=== PATIENT | female | born 1975 | race Two or more races ===

== ENCOUNTER 2017-09-13 18:22 | Emergency (ER) | payer MEDICAID ==
[~2017-09-13] VITALS: Ht 160 cm; Wt 95.3 kg
[2017-09-13 20:24] LABS: Basophils # (auto) 0.1 uL; Basophils % (auto) 1.1 % (0.0-2.0); Eosinophils # (auto) 0.2 uL; Eosinophils % (auto) 2.8 % (0.0-7.0); Hematocrit 38.4 % (36.0-46.0); Hemoglobin 12.8 g/dL (12.2-16.2); Lymphocytes # (auto) 2.8 uL; Mean Corpuscular Hemoglobin 27.4 pg (28.0-32.0); Mean Corpuscular Hgb Conc. 33.2 g/dL (32.0-36.0); Mean Corpuscular Volume 82.5 fL (80.0-100.0); Monocytes # (auto) 0.5 uL; Monocytes % (auto) 7.8 % (0.0-12.0); Neutrophils # (auto) 3.2 uL; Neutrophils % (auto) 47.3 % (37.0-80.0); Nucleated Red Blood Cells % 0.3 %; Platelet Count (auto) 285 10^3/uL (140-450); Red Blood Cells 4.66 10^6/uL (4.0-5.20); Red Cell Distribution Width 14.8 % (11.8-14.3); White Blood Cell 6.9 10^3/uL (4.4-10.8)
[2017-09-13 20:34] LABS: Albumin 3.6 g/dL (3.4-5.0); BUN/Creatinine Ratio 11.1; Calcium 8.7 mg/dL (8.5-10.1)
[2017-09-13 20:37] LABS: Bilirubin, Total 0.3 mg/dL (0.2-1.0); Total Protein 7.4 g/dL (6.4-8.2)
[2017-09-13 20:41] LABS: INR 0.92 (0.9-1.15); Partial Thromboplastin Time 25.4 sec (22.64-33.71)
[2017-09-13] MEDS ORDERED: LORazepam 0.5 MG TAB PO ONE (22:00)
[2017-09-13] MEDS ORDERED: LORazepam 0.5 MG TAB ONE (23:01)
[2017-09-13 23:04] VITALS: BP 153/93
[2017-09-13 23:23] LABS: Urine Bacteria FEW /hpf (None Seen); Urine Blood Negative /uL (Negative); Urine Specific Gravity 1.004 (1.001-1.035); Urine WBC 1 /hpf (0 - 5)
== END 2017-09-14 00:54 | disposition home or self-care (01) ==
LOC: ER 18:22
DX: R60.9 Edema, unspecified (principal); K76.0 Fatty (change of) liver, not elsewhere classified; Z90.710 Acquired absence of both cervix and uterus; Z98.51 Tubal ligation status
CPT/HCPCS: 36415; 71046; 76705; 80053; 81001; 81025; 83880; 84443; 85025; 85379; 85610; 85730

== ENCOUNTER 2018-03-21 19:48 | Emergency (ER) | payer MEDICAID ==
[~2018-03-21] VITALS: Ht 160 cm; Wt 95.3 kg
[2018-03-21 21:37] LABS: Eosinophils # (auto) 0 uL; Hemoglobin 12.6 g/dL (12.2-16.2); Mean Corpuscular Hgb Conc. 32.3 g/dL (32.0-36.0); Monocytes % (auto) 7.4 % (0.0-12.0); Neutrophils # (auto) 8.4 uL; Neutrophils % (auto) 64.6 % (37.0-80.0); Nucleated Red Blood Cells % 0.1 %
[2018-03-21 21:39] LABS: Basophils # (auto) 0 uL; Basophils % (auto) 0.3 % (0.0-2.0); Eosinophils % (auto) 0.2 % (0.0-7.0); Lymphocytes # (auto) 3.6 uL; Lymphocytes % (auto) 27.5 % (10.0-50.0); Mean Corpuscular Hemoglobin 26.4 pg (28.0-32.0); Mean Corpuscular Volume 81.8 fL (80.0-100.0); Platelet Count (auto) 345 10^3/uL (140-450); Red Blood Cells 4.76 10^6/uL (4.0-5.20); Red Cell Distribution Width 13.7 % (11.8-14.3)
[2018-03-21 21:51] LABS: Chloride 106 mmol/L (98-107); Potassium 3.7 mmol/L (3.5-5.1); Sodium 138 mmol/L (136-145)
[2018-03-21 21:56] LABS: Alanine Aminotransferase 27 U/L (13-56); Albumin 3.4 g/dL (3.4-5.0); Anion Gap 9 (5-15); Aspartate Aminotransferase 16 U/L (15-37); BUN/Creatinine Ratio 18.4; Blood Urea Nitrogen 16 mg/dL (7-18); Calcium 8.3 mg/dL (8.5-10.1); Carbon Dioxide 23 mmol/L (21-32); GFR African American 91 mL/min; GFR Non-African American 76 mL/min; Glucose 107 mg/dL (74-106); Magnesium 2.3 mg/dL (1.6-2.6)
[2018-03-21 22:01] LABS: Alkaline Phosphatase 85 U/L (45-117); Bilirubin, Total 0.3 mg/dL (0.2-1.0); Total Protein 7.8 g/dL (6.4-8.2)
[2018-03-22] MEDS ORDERED: LORazepam 0.5 MG TAB PO ONE (03:30)
[2018-03-22] MEDS ORDERED: ASPirin 325 MG TAB PO ONE (03:30)
[2018-03-22 04:00] VITALS: BP 118/73
== END 2018-03-22 05:44 | disposition home or self-care (01) ==
LOC: ER 19:48
DX: R07.9 Chest pain, unspecified (principal); Z90.710 Acquired absence of both cervix and uterus; Z98.51 Tubal ligation status
CPT/HCPCS: 36415; 71045; 80053; 81025; 83735; 83880; 84443; 84484; 85025; 93005

== ENCOUNTER 2020-08-17 08:27 | Inpatient (IN) | payer MEDICAID ==
[~2020-08-17] VITALS: Ht 160 cm; Wt 94.6 kg
[2020-08-17 09:21] LABS: Urine Bacteria FEW /hpf (None Seen); Urine Blood Negative /uL (Negative); Urine Mucus FEW (None Seen); Urine Specific Gravity 1.025 (1.001-1.035); Urine WBC 17 /hpf (0 - 5)
[2020-08-17] MEDS ORDERED: cefTRIAXone 1GM/50ML D5W 50 ML IV ONE (10:00)
[2020-08-17 10:22] LABS: Basophils # (auto) 0 10 ^3/uL (0-0.2); Basophils % (auto) 0.6 % (0.0-2.0); Eosinophils # (auto) 0 10 ^3/uL (0-0.8); Eosinophils % (auto) 0.6 % (0.0-7.0); Hematocrit 38.1 % (36.0-46.0); Hemoglobin 12.7 g/dL (12.2-16.2); Lymphocytes # (auto) 1.9 10 ^3/uL (0.4-5.4); Lymphocytes % (auto) 31.9 % (10.0-50.0); Mean Corpuscular Hemoglobin 27.4 pg (28.0-32.0); Mean Corpuscular Hgb Conc. 33.5 g/dL (32.0-36.0); Mean Corpuscular Volume 81.8 fL (80.0-100.0); Monocytes # (auto) 0.3 10 ^3/uL (0-1.3); Monocytes % (auto) 5.5 % (0.0-12.0); Neutrophils # (auto) 3.6 10 ^3/uL (1.6-8.6); Neutrophils % (auto) 61.4 % (37.0-80.0); Nucleated Red Blood Cells % 0.1 %; Platelet Count (auto) 329 10^3/uL (140-450); Red Blood Cells 4.66 10^6/uL (4.0-5.20); Red Cell Distribution Width 14.8 % (11.8-14.3); White Blood Cell 5.8 10^3/uL (4.4-10.8)
[2020-08-17 12:59] LABS: Potassium 4.2 mmol/L (3.5-5.1)
[2020-08-17 13:05] LABS: Albumin 3.9 g/dL (3.4-5.0); BUN/Creatinine Ratio 17.3; Calcium 9.2 mg/dL (8.5-10.1)
[2020-08-17 13:08] LABS: Bilirubin, Total 1.4 mg/dL (0.2-1.0); Total Protein 8.2 g/dL (6.4-8.2)
[2020-08-17] MEDS ORDERED: NITROGLYCERIN 0.4 MG SL TAB SL PRN (23:45)
[2020-08-17] MEDS ORDERED: MORPHINE SULF INJ 2 MG/ML SYRINGE 1ML IV PRN (23:45)
[2020-08-17] MEDS ORDERED: HYDROcodone-ACET 5/325MG TAB PO PRN (23:45)
[2020-08-18] MEDS: D5W/SOD CHL 0.45% 1,000 ML IV SCH ×2 (00:03→13:05)
[2020-08-18] MEDS: ACETAMINOPHEN 325 MG TAB PO PRN ×2 (00:04→09:46)
[2020-08-18] MEDS: PANTOPRAZOLE 40 MG/10 ML VIAL INJ IV SCH (07:55)
[2020-08-18] MEDS: cefTRIAXone 1GM/50ML D5W 50 ML IV SCH (07:55)
[2020-08-18] MEDS: ENOXAPARIN SOD 40 MG/0.4 ML SYRINGE SC SCH (07:55)
[2020-08-18 07:57] LABS: Basophils # (auto) 0 10 ^3/uL (0-0.2); Basophils % (auto) 0.6 % (0.0-2.0); Eosinophils # (auto) 0.2 10 ^3/uL (0-0.8); Eosinophils % (auto) 2.7 % (0.0-7.0); Hematocrit 35.2 % (36.0-46.0); Hemoglobin 11.8 g/dL (12.2-16.2); Lymphocytes # (auto) 2.8 10 ^3/uL (0.4-5.4); Lymphocytes % (auto) 39.3 % (10.0-50.0); Mean Corpuscular Hemoglobin 27.3 pg (28.0-32.0); Mean Corpuscular Hgb Conc. 33.6 g/dL (32.0-36.0); Mean Corpuscular Volume 81.1 fL (80.0-100.0); Monocytes # (auto) 0.5 10 ^3/uL (0-1.3); Monocytes % (auto) 6.7 % (0.0-12.0); Neutrophils # (auto) 3.6 10 ^3/uL (1.6-8.6); Neutrophils % (auto) 50.7 % (37.0-80.0); Nucleated Red Blood Cells % 0.1 %; Platelet Count (auto) 283 10^3/uL (140-450); Red Blood Cells 4.34 10^6/uL (4.0-5.20); Red Cell Distribution Width 14.6 % (11.8-14.3); White Blood Cell 7.1 10^3/uL (4.4-10.8)
[2020-08-18 08:17] LABS: Potassium 3.8 mmol/L (3.5-5.1)
[2020-08-18 08:23] LABS: Albumin 3.4 g/dL (3.4-5.0); BUN/Creatinine Ratio 24.1
[2020-08-18 08:26] LABS: Bilirubin, Total 0.8 mg/dL (0.2-1.0); Total Protein 7.2 g/dL (6.4-8.2)
[2020-08-18] MEDS: metroNIDAZOLE 500MG/100ML 100 ML IV SCH ×2 (14:00→21:31)
[2020-08-18 17:47] LABS: INR 1.03 (0.9-1.15)
[2020-08-18 21:13] VITALS: BP 115/69
[2020-08-19] MEDS: D5W/SOD CHL 0.45% 1,000 ML IV SCH ×2 (02:25→15:45)
[2020-08-19] MEDS: metroNIDAZOLE 500MG/100ML 100 ML IV SCH ×3 (06:21→22:55)
[2020-08-19 06:25] VITALS: BP 116/63
[2020-08-19 07:55] LABS: Basophils # (auto) 0 10 ^3/uL (0-0.2); Basophils % (auto) 0.7 % (0.0-2.0); Eosinophils # (auto) 0.1 10 ^3/uL (0-0.8); Hematocrit 37.9 % (36.0-46.0); Hemoglobin 12.7 g/dL (12.2-16.2); Lymphocytes # (auto) 2.5 10 ^3/uL (0.4-5.4); Lymphocytes % (auto) 38.8 % (10.0-50.0); Mean Corpuscular Hemoglobin 27.3 pg (28.0-32.0); Mean Corpuscular Hgb Conc. 33.5 g/dL (32.0-36.0); Mean Corpuscular Volume 81.3 fL (80.0-100.0); Monocytes # (auto) 0.4 10 ^3/uL (0-1.3); Monocytes % (auto) 6.1 % (0.0-12.0); Neutrophils # (auto) 3.4 10 ^3/uL (1.6-8.6); Neutrophils % (auto) 52.4 % (37.0-80.0); Platelet Count (auto) 282 10^3/uL (140-450); Red Blood Cells 4.66 10^6/uL (4.0-5.20); Red Cell Distribution Width 14.7 % (11.8-14.3); White Blood Cell 6.5 10^3/uL (4.4-10.8)
[2020-08-19 08:00] VITALS: BP 110/81
[2020-08-19 08:06] LABS: Albumin 3.5 g/dL (3.4-5.0); Potassium 4.1 mmol/L (3.5-5.1)
[2020-08-19 08:09] LABS: BUN/Creatinine Ratio 20.3
[2020-08-19 08:12] LABS: Bilirubin, Total 0.6 mg/dL (0.2-1.0); Total Protein 7.6 g/dL (6.4-8.2)
[2020-08-19] MEDS: PANTOPRAZOLE 40 MG/10 ML VIAL INJ IV SCH (08:54)
[2020-08-19] MEDS: cefTRIAXone 1GM/50ML D5W 50 ML IV SCH (08:54)
[2020-08-19] MEDS: ENOXAPARIN SOD 40 MG/0.4 ML SYRINGE SC SCH (08:54)
[2020-08-19] MEDS: ONDANSETRON HCL 4 MG/2 ML VIAL IV PRN (11:19)
[2020-08-19] MEDS: MORPHINE SULFATE 4 MG/ML SYR/VIAL IV PRN ×2 (11:20→23:30)
[2020-08-19 12:00] VITALS: BP 156/91
[2020-08-19 16:00] VITALS: BP 119/69
[2020-08-19 22:00] VITALS: BP 125/66
[2020-08-20] MEDS: ACETAMINOPHEN 325 MG TAB PO PRN (01:02)
[2020-08-20] MEDS: D5W/SOD CHL 0.45% 1,000 ML IV SCH ×2 (04:58→18:25)
[2020-08-20 05:00] VITALS: BP 110/67
[2020-08-20 06:18] LABS: Basophils # (auto) 0 10 ^3/uL (0-0.2); Basophils % (auto) 0.5 % (0.0-2.0); Eosinophils # (auto) 0.1 10 ^3/uL (0-0.8); Eosinophils % (auto) 1.3 % (0.0-7.0); Hematocrit 35.9 % (36.0-46.0); Hemoglobin 12.4 g/dL (12.2-16.2); Lymphocytes % (auto) 41.6 % (10.0-50.0); Mean Corpuscular Hgb Conc. 34.4 g/dL (32.0-36.0); Mean Corpuscular Volume 81.3 fL (80.0-100.0); Monocytes # (auto) 0.5 10 ^3/uL (0-1.3); Monocytes % (auto) 6.3 % (0.0-12.0); Neutrophils # (auto) 3.7 10 ^3/uL (1.6-8.6); Neutrophils % (auto) 50.3 % (37.0-80.0); Nucleated Red Blood Cells % 0.1 %; Platelet Count (auto) 273 10^3/uL (140-450); Red Blood Cells 4.42 10^6/uL (4.0-5.20); Red Cell Distribution Width 14.1 % (11.8-14.3); White Blood Cell 7.3 10^3/uL (4.4-10.8)
[2020-08-20] MEDS: metroNIDAZOLE 500MG/100ML 100 ML IV SCH ×3 (06:19→21:40)
[2020-08-20 06:33] LABS: Albumin 3.4 g/dL (3.4-5.0); Potassium 3.5 mmol/L (3.5-5.1)
[2020-08-20 06:36] LABS: BUN/Creatinine Ratio 16.7; Total Protein 7.5 g/dL (6.4-8.2)
[2020-08-20 06:42] LABS: Bilirubin, Total 0.5 mg/dL (0.2-1.0)
[2020-08-20 08:14] VITALS: BP 120/71
[2020-08-20] MEDS: cefTRIAXone 1GM/50ML D5W 50 ML IV SCH (09:35)
[2020-08-20] MEDS: PANTOPRAZOLE 40 MG/10 ML VIAL INJ IV SCH (09:35)
[2020-08-20] MEDS: ENOXAPARIN SOD 40 MG/0.4 ML SYRINGE SC SCH (09:36)
[2020-08-20] MEDS: ONDANSETRON HCL 4 MG/2 ML VIAL IV PRN (13:17)
[2020-08-20 13:30] VITALS: BP 102/71
[2020-08-20 16:48] VITALS: BP 120/68
[2020-08-20 22:00] VITALS: BP 108/66
[2020-08-21 05:00] VITALS: BP 100/50
[2020-08-21] MEDS: metroNIDAZOLE 500MG/100ML 100 ML IV SCH ×3 (05:34→21:32)
[2020-08-21 07:38] LABS: Albumin 3.1 g/dL (3.4-5.0); Magnesium 1.9 mg/dL (1.6-2.6); Potassium 3.8 mmol/L (3.5-5.1)
[2020-08-21 07:42] LABS: Bilirubin, Direct 0.1 mg/dL (0-0.2); Bilirubin, Total 0.4 mg/dL (0.2-1.0); Total Protein 6.9 g/dL (6.4-8.2)
[2020-08-21 09:00] VITALS: BP 106/70
[2020-08-21] MEDS: PANTOPRAZOLE 40 MG/10 ML VIAL INJ IV SCH (09:22)
[2020-08-21] MEDS: D5W/SOD CHL 0.45% 1,000 ML IV SCH ×2 (09:23→21:29)
[2020-08-21] MEDS: cefTRIAXone 1GM/50ML D5W 50 ML IV SCH (09:23)
[2020-08-21] MEDS: ENOXAPARIN SOD 40 MG/0.4 ML SYRINGE SC SCH (09:46)
[2020-08-21] MEDS ORDERED: MAGNESIUM SULFATE 1GM/100ML 100 ML IV ONE (12:15)
[2020-08-21 13:00] VITALS: BP 120/70
[2020-08-21] MEDS ORDERED: IOHEXOL 300 MG/ML 100ML BOTTLE IJ ONE (15:55)
[2020-08-21] MEDS ORDERED: LIDOCAINE 2% (LOCAL ANESTH.) PF 5ml SDV ONE (16:14)
[2020-08-21] MEDS ORDERED: PROPOFOL 10 MG/ML 20 ML IV ONE ×3 (16:14→16:36)
[2020-08-21] MEDS ORDERED: ePHEDrine SULFATE 50 MG/ML AMP IV ONE (16:17)
[2020-08-21 17:00] VITALS: BP 115/79
[2020-08-21 22:00] VITALS: BP 135/81
[2020-08-22 05:00] VITALS: BP 114/66
[2020-08-22] MEDS: metroNIDAZOLE 500MG/100ML 100 ML IV SCH ×3 (05:28→21:54)
[2020-08-22 08:03] LABS: Albumin 3.3 g/dL (3.4-5.0); Calcium 8.6 mg/dL (8.5-10.1); Potassium 3.6 mmol/L (3.5-5.1)
[2020-08-22 08:05] LABS: BUN/Creatinine Ratio 9.4
[2020-08-22 08:08] LABS: Bilirubin, Total 0.4 mg/dL (0.2-1.0); Total Protein 6.9 g/dL (6.4-8.2)
[2020-08-22 09:00] VITALS: BP 124/73
[2020-08-22] MEDS: ENOXAPARIN SOD 40 MG/0.4 ML SYRINGE SC SCH (10:00)
[2020-08-22] MEDS: D5W/SOD CHL 0.45% 1,000 ML IV SCH ×2 (10:25→21:54)
[2020-08-22] MEDS: cefTRIAXone 1GM/50ML D5W 50 ML IV SCH (10:30)
[2020-08-22] MEDS: PANTOPRAZOLE 40 MG/10 ML VIAL INJ IV SCH (10:30)
[2020-08-22 12:00] VITALS: BP 118/75
[2020-08-22] MEDS ORDERED: SODIUM CHLORIDE LOCK 10 ML ONE (12:26)
[2020-08-22] MEDS ORDERED: MIDAZOLAM HCL 1MG/1ML-2 ML VIAL ONE (12:26)
[2020-08-22] MEDS ORDERED: fentaNYL CITRATE 100 MCG/2 ML VL ONE (12:26)
[2020-08-22] MEDS ORDERED: ONDANSETRON HCL 4 MG/2 ML VIAL ONE (12:27)
[2020-08-22] MEDS ORDERED: PROPOFOL 10 MG/ML 20 ML IV ONE (12:27)
[2020-08-22] MEDS ORDERED: KETAMINE HCL 10 ML ONE (12:29)
[2020-08-22] MEDS ORDERED: IOHEXOL 300 MG/ML 100ML BOTTLE IJ ONE (12:34)
[2020-08-22 14:10] VITALS: BP 112/81
[2020-08-22 16:52] VITALS: BP 116/75
[2020-08-22 22:00] VITALS: BP 105/65
[2020-08-23 05:00] VITALS: BP 99/53
[2020-08-23] MEDS: metroNIDAZOLE 500MG/100ML 100 ML IV SCH ×2 (05:52→15:45)
[2020-08-23 07:56] LABS: Albumin 3.1 g/dL (3.4-5.0); Bilirubin, Direct 0.2 mg/dL (0-0.2)
[2020-08-23 07:59] LABS: Bilirubin, Total 0.4 mg/dL (0.2-1.0); Total Protein 6.4 g/dL (6.4-8.2)
[2020-08-23 08:47] VITALS: BP 109/61
[2020-08-23] MEDS: cefTRIAXone 1GM/50ML D5W 50 ML IV SCH (09:52)
[2020-08-23] MEDS: PANTOPRAZOLE 40 MG/10 ML VIAL INJ IV SCH (09:52)
[2020-08-23] MEDS: ENOXAPARIN SOD 40 MG/0.4 ML SYRINGE SC SCH (09:52)
[2020-08-23] MEDS ORDERED: METR500T PO (11:26)
[2020-08-23] MEDS ORDERED: LEVO500T31 PO (11:26)
[2020-08-23] MEDS: D5W/SOD CHL 0.45% 1,000 ML IV SCH (13:05)
[2020-08-23 13:23] VITALS: BP 115/64
[2020-08-23 15:46] VITALS: BP 111/52
[2020-08-23 17:07] VITALS: BP 111/52
== END 2020-08-23 18:30 | disposition home or self-care (01) ==
LOC: ER 08:27 → TELE 23:35 → TELE-WESTW 08-18 14:15
PROVIDERS: ADMIT Nurse Practitioner Family; ATTEND Internal Medicine
PROC: BF181ZZ Fluoroscopy of Pancreatic Ducts using Low Osmolar Contrast (ICD-10-PCS; 2020-08-21)
PROC: 0FJD8ZZ Inspection of Pancreatic Duct, Via Natural or Artificial Opening Endoscopic (ICD-10-PCS; 2020-08-21)
PROC: BF101ZZ Fluoroscopy of Bile Ducts using Low Osmolar Contrast (ICD-10-PCS; 2020-08-22)
PROC: 0F798ZZ Dilation of Common Bile Duct, Via Natural or Artificial Opening Endoscopic (ICD-10-PCS; 2020-08-22)
PROC: 0FC98ZZ Extirpation of Matter from Common Bile Duct, Via Natural or Artificial Opening Endoscopic (ICD-10-PCS; principal; 2020-08-22 12:55)
DX: K80.42 Calculus of bile duct with acute cholecystitis without obstruction (principal); N17.0 Acute kidney failure with tubular necrosis; N18.9 Chronic kidney disease, unspecified; E66.01 Morbid (severe) obesity due to excess calories; Z53.20 Procedure and treatment not carried out because of patient's decision for unspecified reasons; K76.0 Fatty (change of) liver, not elsewhere classified; Z20.822 Contact with and (suspected) exposure to COVID-19; Z68.35 Body mass index [BMI] 35.0-35.9, adult; Z98.51 Tubal ligation status; Z90.710 Acquired absence of both cervix and uterus
CPT/HCPCS: 36415; 71045; 74018; 74176; 74181; 76000; 76705; 80053; 80076; 81001; 81025; 82150; 83036; 83690; 83735; 84132; 84443; 85025; 85610; 86850; 86900; 86901; 87086; 87426; 96365; 96366; 96372; 96375; C9113; G0378; J0696; J2001; J2250; J2405; J2704; J3490; J7042

== ENCOUNTER 2022-01-14 22:01 | Emergency (ER) | payer MEDICAID ==
[~2022-01-14] VITALS: Ht 160 cm; Wt 101.2 kg
[2022-01-14 22:01] VITALS: BP 139/96
[~2022-01-14 22:01] MED LIST: LEVO500T31 PO; METR500T PO
== END 2022-01-15 02:33 | disposition home or self-care (01) ==
LOC: ER 22:01
DX: S52.501A Unspecified fracture of the lower end of right radius, initial encounter for closed fracture (principal); Z90.710 Acquired absence of both cervix and uterus; Z98.51 Tubal ligation status; W21.02XA Struck by soccer ball, initial encounter; Y93.89 Activity, other specified; Y92.89 Other specified places as the place of occurrence of the external cause; Y99.8 Other external cause status
CPT/HCPCS: 29125; 73110

== ENCOUNTER 2022-07-14 12:27 | Emergency (ER) | payer MEDICAID ==
[~2022-07-14] VITALS: Ht 160 cm; Wt 105.6 kg
[2022-07-14 13:15] LABS: Basophils # (auto) 0 10 ^3/uL (0-0.2); Basophils % (auto) 0.5 % (0.0-2.0); Eosinophils # (auto) 0 10 ^3/uL (0-0.8); Eosinophils % (auto) 0.5 % (0.0-7.0); Hematocrit 38.9 % (36.0-46.0); Hemoglobin 13.2 g/dL (12.2-16.2); Lymphocytes % (auto) 25.4 % (10.0-50.0); Mean Corpuscular Hemoglobin 27.6 pg (28.0-32.0); Mean Corpuscular Volume 81.2 fL (80.0-100.0); Monocytes # (auto) 0.5 10 ^3/uL (0-1.3); Monocytes % (auto) 6.7 % (0.0-12.0); Neutrophils # (auto) 5.4 10 ^3/uL (1.6-8.6); Neutrophils % (auto) 66.9 % (37.0-80.0); Nucleated Red Blood Cells % 0.2 %; Red Blood Cells 4.79 10^6/uL (4.0-5.20); Red Cell Distribution Width 13.7 % (11.8-14.3); White Blood Cell 8.1 10^3/uL (4.4-10.8)
[2022-07-14 13:29] LABS: Urine Bacteria NONE SEEN /hpf (None Seen); Urine Blood Negative /uL (Negative); Urine Mucus FEW (None Seen); Urine WBC 10 /hpf (0 - 5)
[2022-07-14 13:31] LABS: Albumin 3.9 g/dL (3.4-5.0); Calcium 8.9 mg/dL (8.5-10.1); Potassium 4.1 mmol/L (3.5-5.1)
[2022-07-14 13:35] LABS: Bilirubin, Total 1.2 mg/dL (0.2-1.0); Total Protein 7.7 g/dL (6.4-8.2)
[2022-07-14] MEDS ORDERED: PIPERACILLIN-TAZOB 3.375GM 100 ML IV ONE (15:30)
[2022-07-14] MEDS ORDERED: PANTOPRAZOLE 40 MG/10 ML VIAL INJ IV ONE (21:00)
[2022-07-14 21:47] VITALS: BP 131/70
== END 2022-07-14 17:55 | disposition short-term general hospital (02) ==
LOC: ER 12:27
DX: K80.10 Calculus of gallbladder with chronic cholecystitis without obstruction (principal); K80.40 Calculus of bile duct with cholecystitis, unspecified, without obstruction; Z90.710 Acquired absence of both cervix and uterus; Z79.2 Long term (current) use of antibiotics
CPT/HCPCS: 36415; 76705; 80053; 81001; 81025; 83690; 85025; 96365; 96366; 96375; 99285; C9113; J2543